=== PATIENT | female | born 1990 | race Caucasian/White ===

== ENCOUNTER 2017-04-14 15:56 | Emergency (ER) | payer SELFPAY ==
[~2017-04-14] VITALS: Ht 167.6 cm; Wt 74.0 kg
[~2017-04-14 15:56] MED LIST: AMOXICILLIN500 MG PO; CONCERTA; MOTRIN800 MG PO; NO HOME MEDS; TYLENOL REGULA325 MG PO; [UNRECOGNIZED DRUG - OTHER]
[2017-04-14] MEDS ORDERED: ULTRAM50 MG PO (16:43)
[2017-04-14 17:05] VITALS: BP 114/76
== END 2017-04-14 17:13 | disposition home or self-care (01) ==
LOC: EME 15:56
DX: K08.89 Other specified disorders of teeth and supporting structures (principal); Z98.890 Other specified postprocedural states
CPT/HCPCS: 99281; 99284